=== PATIENT | female | born 1995 | race Caucasian/White ===

== ENCOUNTER 2016-04-13 16:00 | Emergency (ER) | payer OTHER ==
[~2016-04-13] VITALS: Ht 165.1 cm; Wt 60.0 kg
[2016-04-13 16:02] VITALS: BP 134/74; PULSE 77; RESP 16; TEMP 97.8; O2SAT 100
--- NOTE | 2016-04-13 16:15 | PD ---
HPI Chief Complaint: Injury Time Seen by Provider: 16:06 Travel History International Travel<30 days: No Contact w/Intl Traveler<30days: No Traveled to known affect area: No History of Present Illness HPI This is an otherwise healthy 21 year-old woman presents emergent from another left knee injury while [place]. She states she bounced also an angled trampoline and then had pain and deformity to her left knee. She has difficulty describing what sounds like she may have had a left lateral patella location. It doesn't sound like there is varus or valgus deformity to the knee. The little bit unclear. Her boyfriend helped the leg in extension and was splinted by the fire department and she arrives by private vehicle with an EMS long leg splint in place. She states the pain is improved at this time. History Past Medical History Medical History: Denies Significant Hx Tetanus Vaccination: Unknown Influenza Vaccination: No LMP: 03/2016 Past Surgical History Surgical History: No Previous Surgery Social History Alcohol Use: No Tobacco Use: No Allergies-Medications (Allergen,Severity, Reaction): Coded Allergies: No Known Allergies (Unverified , 04/13/16) Reported Meds & Prescriptions Reported Meds & Active Scripts Active No Active Prescriptions or Reported Medications Review of Systems Except as stated in HPI: all other systems reviewed are Neg Physical Exam Narrative GENERAL: Well-appearing 21 year-old woman, no acute distress. SKIN: Warm and dry. CARDIOVASCULAR: Warm and well perfused. RESPIRATORY: Normal rate and effort. MUSCULOSKELETAL: Grossly normal appearance of the left knee. There maybe a little bit of swelling especially medially over the very proximal tibia. Patella is in place. There is no significant deformity. She has pain with passive range of motion beyond just a few degrees. She has tenderness over the lateral aspect of the knee joint greater than the anterior greater than the medial. Distally she is normal, good pulses, normal sensation, no pain. NEUROLOGICAL: Awake and alert. No gross deficits. Data Data Last Documented VS Vital Signs Date Time Temp Pulse Resp B/P Pulse Ox O2 Delivery O2 Flow Rate FiO2 04/13/16 16:04 Room Air 04/13/16 16:02 97.8 77 16 134/74 100 Orders Knee, Complete (4vws) (04/13/16 ) Tibia/Fibula (Ap/Lat) (04/13/16 ) MDM Medical Decision Making Medical Screen Exam Complete: Yes Emergency Medical Condition: Yes Interpretation(s) Left knee x-ray, left tib-fib x-ray: Read as normal. Question of a patella romy. Differential Diagnosis Patellar dislocation/relocation, knee strain sprain, ligamentous injury, proximal tibia fracture, other Narrative Course Medical decision making 21-year-old with knee injury on the left, some swelling and tenderness especially medially, we'll check x-ray, reassess. FINAL: X-rays read as negative. She really is pretty unable to hold the leg extended against resistance result in question of the patella tendon injury. She looks otherwise well. They have a family orthopedic doctor there would like to follow-up with. Offered MRI in the ED with elective follow-up to orthopedic doctor first and then be further evaluated which I think is very reasonable. Diagnosis Primary Impression: Left knee pain Qualified Code: M25.562 - Acute pain of left knee Additional Instructions: Wear knee brace at all times except when showering. Do not bear weight on the left leg. Use Aleve as needed for pain, use Lortab as needed for severe pain. Follow-up with your orthopedic physician in the next 2-3 days. Scripts Hydrocodone-Acetaminophen (Lortab)5-325 Mg Tab1-2 Tab PO Q6H PRN (PAIN) #6 TAB Prov:Chandana uL MD 04/13/16 Naproxen (Naprosyn)500 Mg [id number] Mg PO BID PRN (PAIN SCALE 1 TO 10) #20 TAB Prov:Chandana Lu MD 04/13/16 Disposition: 01 DISCHARGE HOME Condition: Stable Chandana Lu MD Apr 13, 2016 16:15
--- NOTE | 2016-04-13 17:00 | RADRPT ---
EXAM DATE/TIME: 04/13/2016 16:40 [facility] COMPARISON: No previous studies available for comparison. INDICATIONS : Left knee pain after jumping on trampoline. MEDICAL HISTORY : None. SURGICAL HISTORY : None. ENCOUNTER: Initial ACUITY: 1 day PAIN SCORE: 10/10 LOCATION: Left Knee. FINDINGS: Four view examination of the left knee demonstrates no evidence of fracture or dislocation. Bony min eralization is normal. The articular surfaces are intact. The suprapatellar soft tissues have a nor mal configuration. CONCLUSION: Unremarkable examination of the left knee. Humberto Flannery MD on April 13, 2016 at 16:58 Board Certified Radiologist. This report was verified electronically.
--- NOTE | 2016-04-13 17:01 | RADRPT ---
EXAM DATE/TIME: 04/13/2016 16:38 [facility] COMPARISON: No previous studies available for comparison. INDICATIONS : Left lower leg pain after jumping on trampoline. MEDICAL HISTORY : None. SURGICAL HISTORY : None. ENCOUNTER: Initial ACUITY: 1 day PAIN SCORE: 10/10 LOCATION: Left lower leg. FINDINGS: Two view examination of the left tibia demonstrates no evidence of fracture or dislocation. Bony min eralization is normal. The soft tissue structures are intact. CONCLUSION: Unremarkable examination of the left tibia. Humberto Flannery MD on April 13, 2016 at 16:59 Board Certified Radiologist. This report was verified electronically.
[2016-04-13] MEDS ORDERED: NAPR500 PO (17:18)
[2016-04-13] MEDS ORDERED: HYDR-3533 PO (17:18)
== END 2016-04-13 17:31 | disposition home or self-care (01) ==
LOC: NEPC 16:00
DX: M25.562 Pain in left knee (principal); Y93.44 Activity, trampolining
CPT/HCPCS: 73564; 73590; 99283; E0113; L1830